=== PATIENT | male | born 1940 | race Caucasian/White ===

== ENCOUNTER 2017-03-10 12:54 | Outpatient (RCR) | payer MEDICARE, BC ==
[~2017-03-10 12:54] MED LIST: ASPIRIN 32325 MG/TAB PO; CO ENZYME Q-1050 MG PO; CRESTOR40 MG PO; LOPRESSOR100 MG PO; TRICOR145 MG PO; VALTREX1 GM PO; ZETIA 10MG TAB10 MG PO; ZOVIRAX800 MG PO
== END 2017-03-11 | disposition home or self-care (01) ==
LOC: COL.CR
DX: Z48.812 Encounter for surgical aftercare following surgery on the circulatory system (principal); Z95.1 Presence of aortocoronary bypass graft